=== PATIENT | male | born 1965 | race Caucasian/White ===

== ENCOUNTER 2021-05-15 16:17 | Emergency (ER) | payer OTHER, SELFPAY ==
[2021-05-15] MEDS ORDERED: MORPHINE 4 MG/ML SYR ONE (16:36)
[2021-05-15] MEDS ORDERED: ONDANSETRON 4 MG/2 ML VIAL ONE (16:37)
[2021-05-15] MEDS ORDERED: NA CHLORIDE 0.9% 1,000 ML ONE (16:37)
[2021-05-15 16:43] LABS: Absolute Lymphocytes (CBC) 1.1 K/uL (0.7-4.9); Lymphocytes % 11.8 % (15.3-44.8); MPV 8.1 fL (7.6-11.3); RBC Red Blood Cell Count 4.84 M/uL (4.33-5.43)
[2021-05-15 16:59] LABS: Albumin 4.1 g/dL (3.4-5.0); Bilirubin Direct 0.1 mg/dL (0-0.2); Bilirubin Total 0.6 mg/dL (0.2-1.0); Potassium 4.1 mmol/L (3.5-5.1); Protein, Total 7.7 g/dL (6.4-8.2)
--- NOTE | 2021-05-15 17:56 | RAD REPORT ---
EXAM DESCRIPTION: CTStone Protocol - 05/15/2021 5:43 pm CLINICAL HISTORY: ABD PAIN COMPARISON: <Comparisons> TECHNIQUE: CT of the abdomen and pelvis was performed. All CT scans are performed using dose optimization technique as appropriate and may include automated exposure control or mA/KV adjustment according to patient size. FINDINGS: Lower chest: Hiatal hernia with thickened distal esophagus. Coronary artery calcifications . Liver: No acute abnormality or suspicious lesions. Biliary: No biliary ductal dilatation. Stomach: No significant focal abnormality. Duodenum: No significant focal abnormality. Pancreas: No significant abnormality. Spleen: No significant abnormality. Adrenal: No suspicious lesions. Kidney/ureter: No hydronephrosis. No renal calculi. Contrast present within both ureters. Retroperitoneum: No retroperitoneal adenopathy. Vascular: No aneurysm. Bowel: No significant focal abnormality. Normal appendix. Peritoneum: Moderate-sized fat containing periumbilical hernia. No complicating features are seen. Bladder: The bladder is distended with contrast. Reproductive: No adnexal masses. Bones: No acute fracture. 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 Other: n/a IMPRESSION: 1. Moderate sized fat containing periumbilical hernia without complicating features. Rep ortedly, the patient had a hernia reduction earlier in the day at an outside facility. 2. Small hiatal hernia with thickened distal esophagus and prominent lower paraesophageal lymph nodes . Correlate for esophagitis. Nonemergent endoscopy should be considered.
--- NOTE | 2021-05-15 18:03 | EDPHYS ---
Physician Documentation [facility] Name: West Cuevas Age: 55 yrs Sex: Male : 1965 Arrival Date: 05/15/2021 Time: 16:21 Bed 8 Private MD: ED Physician Eliseo Collado HPI: 05/15 16:45 This 55 yrs old Male presents to ER via EMS with complaints of abd pain. kb 16:45 The patient presents with abdominal pain in the periumbilical area. Onset: The kb symptoms/episode began/occurred today. The symptoms do not radiate. Associated signs and symptoms: Pertinent positives: nausea and vomiting, Pertinent negatives: fever. The symptoms are described as constant. Modifying factors: The symptoms are alleviated by nothing, the symptoms are aggravated by pressure. Severity of pain: At its worst the pain was moderate severe in the emergency department the pain is unchanged. The patient has not experienced similar symptoms in the past. The patient has been recently seen by a physician: the ER physician, out of Town. Pt reports abd pain, nausea and vomiting that started today. States he went to [place] [facility] and was told he had a hernia, but they were unable to reduce it so he was told to follow up with a surgeon. States pain has gotten worse since that visit. Historical: - Allergies: 16:24 No Known Allergies; jd3 - Home Meds: 16:24 atorvastatin oral [Active]; jd3 - PMHx: 16:24 high cholesteral; jd3 - PSHx: 16:24 None; jd3 - Immunization history:: Adult Immunizations up to date, Client reports receiving the 2nd dose of the Covid vaccine, Flu vaccine status is unknown. - Social history:: Smoking status: Patient reports the use of cigarette tobacco products, smokes one-half pack cigarettes per day. ROS: 16:43 Constitutional: Negative for fever, chills, and weight loss. kb 16:43 Abdomen/GI: Positive for abdominal pain, nausea and vomiting, Negative for diarrhea, constipation. 16:43 All other systems are negative. Exam: 16:43 Constitutional: This is a well developed, well nourished patient who is awake, alert, kb and in no acute distress. Head/Face: Normocephalic, atraumatic. ENT: Moist Mucous membranes Cardiovascular: Regular rate and rhythm with a normal S1 and S2. No gallops, murmurs, or rubs. No pulse deficits. Respiratory: Respirations even and unlabored. No increased work of breathing. Talking in full sentences Skin: Warm, dry with normal turgor. Normal color. MS/ Extremity: Pulses equal, no cyanosis. Neurovascular intact. Full, normal range of motion. Neuro: Awake and alert, GCS 15, oriented to person, place, time, and situation. Moves all extremities. Normal gait. Psych: Awake, alert, with orientation to person, place and time. Behavior, mood, and affect are within normal limits. 16:43 Abdomen/GI: Inspection: abdomen appears normal, Bowel sounds: normal, Palpation: soft, in all quadrants, moderate abdominal tenderness, in the umbilical area, Hernia: noted in the umbilical area, tenderness, that is moderate. Vital Signs: 16:25 BP 152 / 106; Pulse 83; Resp 20 S; Temp 98.6(TE); Pulse Ox 100% on R/A; Weight 97.52 kg jd3 (R); Height 5 ft. 8 in. (172.72 cm) (R); Pain 9/10; 18:05 BP 141 / 90; Pulse 77; Resp 19 S; Pulse Ox 100% on R/A; jd3 16:25 Body Mass Index 32.69 (97.52 kg, 172.72 cm) jd3 MDM: 16:30 Patient medically screened. 16:44 Data reviewed: vital signs, nurses notes. Data interpreted: Pulse oximetry: on room air kb is 100 %. Interpretation: normal. ED course: Umbilical hernia reduced. Pt reports pain improving after reduction. 18:01 Counseling: I had a detailed discussion with the patient and/or guardian regarding: the kb historical points, exam findings, and any diagnostic results supporting the discharge/admit diagnosis, lab results, radiology results, the need for outpatient follow up, a general surgeon, to return to the emergency department if symptoms worsen or persist or if there are any questions or concerns that arise at home. 05/15 16:22 Order name: Basic Metabolic Panel; Complete Time: 17:04 [facility] 05/15 16:22 Order name: CBC with Diff; Complete Time: 16:47 [facility] 05/15 16:22 Order name: Hepatic Function; Complete Time: 17:04 [facility] 05/15 16:22 Order name: Lipase; Complete Time: 17:04 jd3 05/15 17:42 Order name: Stone Protocol; Complete Time: 18:01 EDMS 05/15 16:22 Order name: IV Saline Lock; Complete Time: 16:42 jd3 05/15 16:22 Order name: Labs collected and sent; Complete Time: 16:42 jd3 Administered Medications: 16:42 Drug: Zofran (Ondansetron) 4 mg Route: IVP; Site: right antecubital; jd3 16:42 Drug: morphine 4 mg Route: IVP; Site: right antecubital; jd3 16:42 Drug: NS 0.9% 1000 ml Route: IV; Rate: 1000 ml; Site: right antecubital; jd3 Disposition Summary: 05/15/21 18:02 Discharge Ordered Location: Home kb Condition: Stable kb Diagnosis - Umbilical hernia without obstruction or gangrene kb Followup: kb - With: Emergency Department - When: As needed - Reason: Worsening of condition Followup: kb - With: Private Physician - When: 2 - 3 days - Reason: Recheck today's complaints, Continuance of care, Re-evaluation by your physician Discharge Instructions: - Discharge Summary Sheet kb - Umbilical Hernia, Adult kb Forms: - Medication Reconciliation Form kb - Thank You Letter kb - Antibiotic Education kb - Prescription Opioid Use kb Addendum: 05/17/2021 19:16 Co-signature as Attending Physician, Eliseo Collado MD I agree with the assessment and k dr plan of care. Signatures: Dispatcher [employer] EDVT Mary Barth, ALTERATION INSPECTOR-C ALTERATION INSPECTOR-Ckb Eliseo Collado MD MD [facility] Mil Navarrete RN RN jd3 Corrections: (The following items were deleted from the chart) 05/15 16:44 16:43 Abdomen/GI: Inspection: abdomen appears normal, Bowel sounds: normal, Palpation: kb soft, in all quadrants, moderate abdominal tenderness, in the umbilical area, Hernia: noted in the umbilical area, tenderness, that is moderate, kb 17:42 16:35 Abdomen Pelvis W Con+CT.RAD.BRZ ordered. EDVT EDMS
--- NOTE | 2021-05-15 18:03 | ER ---
Nurse's Notes [facility] Name: West Cuevas Age: 55 yrs Sex: Male : 1965 Arrival Date: 05/15/2021 Time: 16:21 Bed 8 Private MD: Diagnosis: Umbilical hernia without obstruction or gangrene Presentation: 05/15 16:22 Chief complaint: EMS states: "pt has a hernia that started hurting today. he was seen jd3 in a clinic for it today and was told it gets worse to got to the ER. pt is reporting nausea and vomiting with intense stomach pain.". Coronavirus screen: At this time, the client does not indicate any symptoms associated with coronavirus-19. Ebola Screen: No symptoms or risks identified at this time. Initial Sepsis Screen: Does the patient meet any 2 criteria? No. Patient's initial sepsis screen is negative. Does the patient have a suspected source of infection? No. Patient's initial sepsis screen is negative. Risk Assessment: Do you want to hurt yourself or someone else? Patient reports no desire to harm self or others. Onset of symptoms was May 15, 2021. 16:22 Acuity: CHRIS 3 jd3 16:22 Method Of Arrival: EMS: [facility] jd3 Historical: - Allergies: 16:24 No Known Allergies; jd3 - Home Meds: 16:24 atorvastatin oral [Active]; jd3 - PMHx: 16:24 high cholesteral; jd3 - PSHx: 16:24 None; jd3 - Immunization history:: Adult Immunizations up to date, Client reports receiving the 2nd dose of the Covid vaccine, Flu vaccine status is unknown. - Social history:: Smoking status: Patient reports the use of cigarette tobacco products, smokes one-half pack cigarettes per day. Screenin:47 Abuse screen: Denies threats or abuse. Nutritional screening: No deficits noted. jd3 Tuberculosis screening: No symptoms or risk factors identified. Fall Risk Ambulatory Aid- None/Bed Rest/Nurse Assist (0 pts). Gait- Normal/Bed Rest/Wheelchair (0 pts) Mental Status- Oriented to own ability (0 pts). Total Menezes Fall Scale indicates No Risk (0-24 pts). Assessment: 16:44 General: Appears in no apparent distress. uncomfortable, Behavior is calm, cooperative, jd3 appropriate for age. Pain: Complains of pain in abdomen Quality of pain is described as sharp, tender. Neuro: Level of Consciousness is awake, alert, obeys commands, Oriented to person, place, time, situation. Cardiovascular: Capillary refill < 3 seconds Patient's skin is warm and dry. Respiratory: Airway is patent Respiratory effort is even, unlabored, Respiratory pattern is regular, symmetrical, Denies cough, shortness of breath. GI: Abdomen is round Abdomen is tender to palpation X 4 quads. Guarding noted X 4 quads. Mass noted in umbilical area Reports lower abdominal pain, upper abdominal pain, nausea, vomiting. : No signs and/or symptoms were reported regarding the genitourinary system. EENT: No signs and/or symptoms were reported regarding the EENT system. Derm: Skin is intact, Skin is dry, Skin is normal, Skin temperature is warm. Musculoskeletal: Circulation, motion, and sensation intact. Range of motion: intact in all extremities. 17:40 Reassessment: Patient appears in no apparent distress at this time. No changes from j previously documented assessment. Patient and/or family updated on plan of care and expected duration. Pain level reassessed. Patient is alert, oriented x 3, equal unlabored respirations, skin warm/dry/pink. Vital Signs: 16:25 BP 152 / 106; Pulse 83; Resp 20 S; Temp 98.6(TE); Pulse Ox 100% on R/A; Weight 97.52 kg jd3 (R); Height 5 ft. 8 in. (172.72 cm) (R); Pain 9/10; 18:05 BP 141 / 90; Pulse 77; Resp 19 S; Pulse Ox 100% on R/A; jd3 16:25 Body Mass Index 32.69 (97.52 kg, 172.72 cm) jd3 ED Course: 16:21 Patient arrived in ED. jd3 16:22 Mil Navarrete RN is Primary Nurse. jd3 16:24 Triage completed. jd3 16:26 Arm band placed on. jd3 16:30 Mary Barth [facility]-C [facility]. kb 16:30 Eliseo Collado MD is Attending Physician. kb 16:47 Patient has correct armband on for positive identification. Bed in low position. Call jd3 light in reach. Side rails up X 1. Adult w/ patient. Pulse ox on. NIBP on. 17:43 Stone Protocol In Process Unspecified. EDMS 18:23 No provider procedures requiring assistance completed. IV discontinued, intact, iw bleeding controlled, No redness/swelling at site. Pressure dressing applied. Administered Medications: 16:42 Drug: Zofran (Ondansetron) 4 mg Route: IVP; Site: right antecubital; jd3 16:42 Drug: morphine 4 mg Route: IVP; Site: right antecubital; jd3 16:42 Drug: NS 0.9% 1000 ml Route: IV; Rate: 1000 ml; Site: right antecubital; jd3 Outcome: 18:02 Discharge ordered by . kb 18:23 Discharged to home ambulatory. iw 18:23 Condition: good 18:23 Discharge instructions given to patient, Instructed on discharge instructions, follow up and referral plans. Demonstrated understanding of instructions, follow-up care. 18:23 Patient left the ED. iw Signatures: Dispatcher [employer] EDMS Mary Barth, ARVIN-Payton HOOP COILER-La Nena Shen RN RN iw Mil Navarrete RN RN jTrang Nash RN RN ke1 Corrections: (The following items were deleted from the chart) 18:03 16:44 General: Appears in no apparent distress. uncomfortable, Behavior is calm, ke1 cooperative, appropriate for age, jd3 18:03 16:44 Pain: Complains of pain in abdomen jd3 ke1 18:03 16:44 Neuro: Level of Consciousness is awake, alert, obeys commands, Oriented to ke1 person, place, time, situation, jd3 18:03 16:44 Cardiovascular: Denies chest pain, Capillary refill < 3 seconds Patient's skin is ke1 warm and dry. jd3 18:03 16:44 Respiratory: Airway is patent Respiratory effort is even, unlabored, Respiratory ke1 pattern is regular, symmetrical, jd3 18:03 16:44 GI: Abdomen is round Abdomen is tender to palpation X 4 quads. Guarding noted ke1 Mass noted in umbilical area Reports lower abdominal pain, upper abdominal pain, nausea, vomiting, jd3 18:03 16:44 : No signs and/or symptoms were reported regarding the genitourinary system. [id number] 18:03 16:44 EENT: No signs and/or symptoms were reported regarding the EENT system. [facility] ke 18:03 16:44 Derm: Skin is intact, Skin is dry, Skin is normal, Skin temperature is warm j ke1 18:03 16:44 Musculoskeletal: Circulation, motion, and sensation intact. Range of motion: ke1 intact in all extremities, [facility] 18:04 16:40 General: Appears in no apparent distress. Behavior is calm, cooperative, [place] [id number] 18:04 16:40 Neuro: Level of Consciousness is awake, alert, obeys commands, Oriented to ke1 person, place, situation, forgetful . Facial symmetry appears normal, [facility] 18:04 16:40 Cardiovascular: No deficits noted. [facility] ke 18:04 16:40 Respiratory: ke1 [facility] 18:04 16:40 Cardiovascular: Heart tones S1 S2 present Capillary refill < 3 seconds Pulses are ke1 all present. Rhythm is regular Chest pain is denied ke 18:04 16:40 Respiratory: Airway is patent Breath sounds are clear bilaterally. 1 ke1 18:04 16:40 GI: Abdomen is non-distended, ke1 ke1 18:04 16:40 Musculoskeletal: Range of motion: intact in all extremities, ke1 ke1
[2021-05-15 19:03] VITALS: TEMP 98.6; O2SAT 100
[2021-05-15 19:04] VITALS: BP 141/90
== END 2021-05-15 18:23 | disposition home or self-care (01) ==
LOC: ER 16:17
DX: K42.9 Umbilical hernia without obstruction or gangrene (principal); E78.00 Pure hypercholesterolemia, unspecified; F17.210 Nicotine dependence, cigarettes, uncomplicated
CPT/HCPCS: 85025; 80048; 36415; 80076; 83690; 76377; 74176; 96375; 96374; 99284; J7030; J2405